=== PATIENT | female | born 1980 | race Two or more races ===

== ENCOUNTER 2022-01-11 11:59 | Inpatient (IN) | payer BC ==
[~2022-01-11] VITALS: Ht 170.2 cm; Wt 61.7 kg
--- NOTE | 2022-01-11 12:18 | NUR ---
BIBSelf , C/O HEART PALPITATIONS, NO CHEST PAIN NO SOB NOTED, HTN AT THIS TIME
[2022-01-11 13:20] LABS: BASOPHILS % (AUTO) 0.6 % (0.0-2.0); EOSINOPHILS % (AUTO) 0.4 % (0.0-6.0); HEMATOCRIT 41 % (33-45); HEMOGLOBIN 13.7 g/dL (11.5-14.8); LYMPHOCYTES # (AUTO) 1.3 K/uL (0.8-4.8); LYMPHOCYTES % (AUTO) 19.1 % (20.0-44.0); MEAN CORPUSCULAR HGB CONC 34 g/dl (31.0-36.0); MEAN CORPUSCULAR VOLUME 97 fL (82-100); MONOCYTES # (AUTO) 0.6 K/uL (0.1-1.30); MONOCYTES % (AUTO) 8.4 % (2.0-12.0); NEUTROPHILS # (AUTO) 4.7 K/uL (1.8-8.9); NEUTROPHILS % (AUTO) 71.5 % (43.0-81.0); PLATELET COUNT (AUTO) 224 K/uL (150-450); RED BLOOD CELL COUNT(AUTO) 4.16 MIL/uL (4.0-5.2); WHITE BLOOD COUNT (AUTO) 6.6 K/uL (4.3-11.0)
[2022-01-11 13:43] LABS: CALCIUM, SERUM 9.3 mg/dL (8.5-10.1); CREATININE 0.7 mg/dL (0.6-1.3); POTASSIUM 3.7 mmol/L (3.5-5.1)
[2022-01-11 13:59] LABS: THYROID STIMULATING HORMONE 0.889 uIU/mL (0.358-3.74)
--- NOTE | 2022-01-11 14:41 | NUR ---
MOVE SHEET SUBMITTED.
[2022-01-11] MEDS ORDERED: IV NS 0.9% 1,000 ML IV ONE (15:00)
--- NOTE | 2022-01-11 15:51 | NUR ---
BED 321-2, ADMITTING INFORMED
--- NOTE | 2022-01-11 15:55 | NUR ---
REPORT GIVEN TO WU GAMEZ FOR ROOM 321, TO TRANSFER PT SOON FOR TX OF THE LOW NA LEVELS
--- NOTE | 2022-01-11 16:40 | NUR ---
URINE SAMPLE SENT TO LAB
--- NOTE | 2022-01-11 16:40 | NUR ---
IV PATENT FLUSHING LEFT A/C NS FLOWING WELL INTO SITE
--- NOTE | 2022-01-11 17:20 | NUR ---
TRANSFERRED PT WITH RN ASSISTANCE IN WHEEL CHAIR TO ROOM 321 , SAFE TRANSFER - RN CABLE INSTALLER REPAIRER ANGELIKA GIVEN ALL PT DOCUMENTS AND INFO, [facility] MET US UP ON THIRD FLOOR
--- NOTE | 2022-01-11 17:27 | NUR ---
ms rn received a new admission from er, 41 year old female, awake,alert,oriented x4,came in w/ cc of palpitations x1week, denies pain at this time, skin intact, texted dr. cox for orders,all needs attended.
--- NOTE | 2022-01-11 17:29 | NUR ---
ms rn on bed, at bedside, all needs attended.
[2022-01-11 18:00] VITALS: BP 153/86
[2022-01-11] MEDS ORDERED: ACETAMINOPHEN 325 MG TABLET PO PRN (18:00)
[2022-01-11] MEDS ORDERED: Z GUARD REMEDY 4 OZ OINT TP PRN (18:00)
[2022-01-11] MEDS ORDERED: MAGNESIUM HYDROXIDE 30 ML UDC PO PRN (18:00)
[2022-01-11] MEDS ORDERED: MAG HYDROX/AL HYDROX/SIMETH 30 ML UDC PO PRN (18:00)
[2022-01-11] MEDS ORDERED: ONDANSETRON HCL/PF 4 MG/2 ML VIAL IVP PRN (18:00)
[2022-01-11] MEDS ORDERED: ZOLPIDEM TARTRATE 5 MG TABLET PO PRN (18:00)
[2022-01-11] MEDS ORDERED: BUPR100T6 PO (18:27)
[2022-01-11] MEDS: IV NS 0.9% 1,000 ML IV PRN (18:46)
--- NOTE | 2022-01-11 19:27 | NUR ---
ms rn on bed,no distress noted.
[2022-01-11 19:35] VITALS: BP 125/83
[2022-01-11 20:00] VITALS: BP 125/83
[2022-01-12] MEDS: IV NS 0.9% 1,000 ML IV PRN (03:18)
[2022-01-12 04:00] VITALS: BP 136/88
[2022-01-12 05:54] LABS: BASOPHILS % (AUTO) 0.9 % (0.0-2.0); EOSINOPHILS % (AUTO) 1.9 % (0.0-6.0); HEMATOCRIT 36 % (33-45); HEMOGLOBIN 12.4 g/dL (11.5-14.8); LYMPHOCYTES # (AUTO) 1.7 K/uL (0.8-4.8); LYMPHOCYTES % (AUTO) 29.8 % (20.0-44.0); MEAN CORPUSCULAR HGB CONC 34 g/dl (31.0-36.0); MEAN CORPUSCULAR VOLUME 97 fL (82-100); MONOCYTES # (AUTO) 0.5 K/uL (0.1-1.30); MONOCYTES % (AUTO) 8.6 % (2.0-12.0); NEUTROPHILS # (AUTO) 3.3 K/uL (1.8-8.9); NEUTROPHILS % (AUTO) 58.8 % (43.0-81.0); PLATELET COUNT (AUTO) 199 K/uL (150-450); RED BLOOD CELL COUNT(AUTO) 3.72 MIL/uL (4.0-5.2); WHITE BLOOD COUNT (AUTO) 5.6 K/uL (4.3-11.0)
--- NOTE | 2022-01-12 06:00 | NUR ---
closing notes: alert and orientated X$ speaks of going home today "feeling better no Palpitations" on the monitor she has been SR HR 64 Slept thru the nigh
[2022-01-12] MEDS ORDERED: PANTOPRAZOLE 40 MG TABLET.DR PO SCH (07:30)
[2022-01-12 08:08] LABS: CALCIUM, SERUM 8.3 mg/dL (8.5-10.1); CARBON DIOXIDE 25 mmol/L (21-32); CREATININE 0.7 mg/dL (0.6-1.3); GLUCOSE 95 mg/dL (74-106); MAGNESIUM 1.9 mg/dL (1.8-2.4); PHOSPHORUS 3.3 mg/dL (2.5-4.9); POTASSIUM 4.3 mmol/L (3.5-5.1); SODIUM SERUM 142 mmol/L (136-145); UREA NITROGEN, BLOOD 11 mg/dL (7-18)
--- NOTE | 2022-01-12 08:08 | NUR ---
CITY ROUTE DRIVER OPENING NOTE Patient in bed, awake. A/O x 4, able to make needs known. On room air, breathing evenly and unlabored. IV access on RFA #20 infusing NS at 100 ml/hr. On tele monitoring showing SR, HR 85. Safety precautions in place: be din low, locked position; siderails up x 2; call light within reach. Will continue to monitor.
[2022-01-12 08:23] VITALS: BP 133/88
[2022-01-12 12:14] VITALS: BP 135/86
--- NOTE | 2022-01-12 12:50 | NUR ---
DISCHARGE NOTE Received order for discharge. Patient is A/O x 4, able to make needs known. Stable on room air, breathing evenly and unlabored. No SOB or s/s of distress noted. Discharge instructions given both verbally and in written form, verbalized understanding. All belongings accounted for, belonging sheet signed. IV access removed, pressure dressing applied. ID band removed. Patient denies any pain or discomfort at this time. Patient left in stable condition with via private car.
== END 2022-01-12 12:45 | disposition home or self-care (01) | DRG 309 ==
LOC: ER 12:10 → TELE 15:54
PROVIDERS: ADMIT Student in an Organized Health Care Education/Training Program; ATTEND Student in an Organized Health Care Education/Training Program
DX: R00.2 Palpitations (principal); E87.1 Hypo-osmolality and hyponatremia; Z20.822 Contact with and (suspected) exposure to COVID-19; Z72.0 Tobacco use; Z79.899 Other long term (current) drug therapy; F32.A Depression, unspecified
CPT/HCPCS: 36415; 80048-TC; 83735-TC; 84100-TC; 84295-TC; 84443-TC; 84484-TC; 84703-TC; 85025-TC; 87081-TC; 93307-TC; 97116-TC; 97530-TC; G0378; J7030; J7042